=== PATIENT | male | born 1985 | race Hispanic/Latino ===

== ENCOUNTER 2018-11-17 15:35 | Outpatient (CLI) | payer OTHER ==
--- NOTE | 2018-11-17 16:15 | RAD ---
FRadiograph lumbar spine 2 views: 11/17/2018 HISTORY: 33-year-old male with acute bilateral low back pain without sciatica. COMPARISON: None TECHNIQUE: AP and lateral standing views FINDINGS: There are 5 lumbar-type vertebrae. No scoliosis. Vertebral body heights are maintained. Mild to moder ate disc space narrowing at L4-5 and L5-S1. Small endplate marginal osteophytes at L4-5. No spondylol isthesis. Rest of the disc spaces are maintained. IMPRESSION: At least mild discogenic degenerative changes at L4-5 and L5-S1.
== END 2018-11-17 15:36 | disposition home or self-care (01) ==
LOC: BICRAD 15:35
DX: M54.5 Low back pain (principal); M47.816 Spondylosis without myelopathy or radiculopathy, lumbar region; M47.817 Spondylosis without myelopathy or radiculopathy, lumbosacral region
CPT/HCPCS: 72100